=== PATIENT | male | born 2000 | race Asian ===

== ENCOUNTER 2021-11-12 23:01 | Emergency (ER) | payer MEDICAID, OTHER ==
--- NOTE | 2021-11-13 00:53 | ED Physician Documentation ---
PD HPI UPPER EXT INJURY - Stated complaint Stated Complaint: LT FINGER LAC - Chief complaint Chief Complaint: Laceration - History obtained from History obtained from: Patient - History of Present Illness Location: Left Type of injury: Laceration Where injury occurred: Home Timing - onset: Enter time (22:00), Today Timing - details: Abrupt onset Associated symptoms: No: Weakness, Numbness, Tingling, Swelling, Discolored Recently seen: Not recently seen - Additonal information Additional information: At approximately 10 PM tonight, patient was preparing food when he dropped the knife he was using. He reflexively tried to catch the knife with his left hand, sustaining left 2nd finger laceration. He is right hand dominant. He is unsure of tetanus immunization status. Review of Systems Skin: reports: Laceration (s) Neurologic: denies: Focal weakness, Numbness PD PAST MEDICAL HISTORY - Past Medical History Past Medical History: No Cardiovascular: None Respiratory: None Neuro: None Endocrine/Autoimmune: None GI: None : None HEENT: None Psych: None Musculoskeletal: None Derm: None - Past Surgical History Past Surgical History: No - Present Medications Home Medications: Ambulatory Orders Medication Instructions Recorded Confirmed No Known Home Medications 11/12/21 11/12/21 - Allergies Allergies/Adverse Reactions: Allergies Allergy/AdvReac Type Severity Reaction Status Date / Time No Known Drug Allergies Allergy Verified 11/12/21 23:13 - Social History Does the pt smoke?: Yes Smoking Status: Current every day smoker Does the pt drink ETOH?: No Does the pt have substance abuse?: No - Immunizations Immunizations: TDAP >10years/unknown - POLST Patient has POLST: No PD ED PE NORMAL - Vitals Vital signs reviewed: Yes - General General: No acute distress, Well developed/nourished PD ED PE EXPANDED - Extremities Extremities: Motor intact, Sensory intact, Vascular intact, Tendon intact, Other (left second digit (pointer finger): 1 cm flap laceration to lateral/ventral aspect over mid-distal phalanx area. laceration into soft tissue but without adipose or bony visualization) Results - Vitals Vitals: Oxygen O2 Source Room air Procedures - Laceration (location) Finger left Length in cm: 1 Wound type: Flap Neurovascular status: Sensory intact, Motor intact, Vascular intact Tendon involvement: Tendon intact Wound preparation: Chlorhexadine Skin layer closure: Dermabond, Other (dermabond applied; after adequate drying time, t strip applied (reinforced with benzoin)) Other: Patient tolerated well, No complications, Neurovascular intact PD MEDICAL DECISION MAKING - ED course Complexity details: considered differential, d/w patient Departure - Departure Disposition: 01 Home, Self Care Clinical Impression: Laceration Condition: Good Instructions: ED Laceration Ext Skin Glue Comments: Follow up with your primary care provider in 5-7 days for reevaluation of the wound. If you do not have a primary care provider, consider going to a walk-in clinic. Forms: Activity restrictions Discharge Date/Time: 11/13/21 01:19
[2021-11-13] MEDS ORDERED: TETANUS/DIPHTHERIA/PERTUSSIS 0.5 ML SYRINGE IM ONE (01:08)
[2021-11-13 01:24] VITALS: BP 120/72
== END 2021-11-13 01:19 | disposition home or self-care (01) ==
LOC: ED 23:01
DX: S61.211A Laceration without foreign body of left index finger without damage to nail, initial encounter (principal); W26.0XXA Contact with knife, initial encounter; Y93.G1 Activity, food preparation and clean up; F17.200 Nicotine dependence, unspecified, uncomplicated; Z23 Encounter for immunization; Z71.85 Encounter for immunization safety counseling
CPT/HCPCS: 12011; 90471; 99283